=== PATIENT | male | born 1945 | race Caucasian/White ===

== ENCOUNTER → 2017-12-23 | Outpatient (CLI) | END | disposition home or self-care (01) ==

== ENCOUNTER 2018-09-02 13:40 | Inpatient (IN) | payer MEDICARE, OTHER ==
[~2018-09-02] VITALS: Ht 167.6 cm; Wt 134.8 kg
[~2018-09-02 13:40] MED LIST: ACET325 PO; ALBU2.5V5 NEB; ALBU3IS INH; ALBU90OI INH; ALLO100 PO; ALLOPURINOL; AMIO200 PO; AMOCLA500; ASPI325 PO; ASPI81CH PO; Amiodarone HCl200 MG PO; Amoxicillin500 MG PO; Aranesp60 MCG/11 INJ; BUME1; CALACE667G PO; CALC667 PO; CALCIUM ACETAT667 MG PO; CEPH500 PO; CINA30 PO; CLOP75 PO; COUMADIN; DOCU100 PO; ENOX100I SC; ENOX120I; FLUT.05NI; FLUT110OIA INH; Flonase 0.05% N16 GM; GABA100 PO; GABA300 PO; GLUC500 PO; HYDACE5 PO; LOPRESSOR; METO25 PO; METO25ER PO; MIDO2.5 PO; MIDO5 PO; Midodrine HCl10 MG PO; NEPHROCAPS QT1 EACH PO; OMEP20ER PO; ONDA4ODT SL; OXYC10ER PO; PANT40 PO; Percocet 5-3251 EACH PO; RENAGEL; RENAL CAP PO; RENVELA PO; RXPROM25 PO; Renal Caps Softg1 MG PO; SENSIPAR PO; SEVE800 PO; SEVEC800 PO; TAMS.4ER PO; VANCO 750750 MG/250; Ventolin/Prove6.7 GM INH; Ventolin5 MG/1 ML INH; WARF10; WARF10 PO; WARF6 PO; [UNRECOGNIZED DRUG - REMARK]; [UNRECOGNIZED DRUG - REMARK]
[2018-09-02 14:20] LABS: BASOPHILS ABSOLUTE AUTO 0.04 K/mm3 (0.00-0.23); BASOPHILS PERCENT AUTO 1 % (0-2); EOSINOPHILS ABSOLUTE AUTO 0.38 K/mm3 (0.00-0.68); EOSINOPHILS PERCENT AUTO 5 % (0-6); Hematocrit 39.8 % (37.0-53.0); Hemoglobin 12.4 g/dL (13.5-17.5); IMMATURE GRAN ABSOLUTE AUTO 0.06 K/mm3 (0.00-0.10); IMMATURE GRAN PERCENT AUTO 1 % (0-1); LYMPHOCYTES ABSOLUTE AUTO 2.34 K/mm3 (0.84-5.20); LYMPHOCYTES PERCENT AUTO 28 % (21-46); MONOCYTES ABSOLUTE AUTO 0.84 K/mm3 (0.16-1.47); MONOCYTES PERCENT AUTO 10 % (4-13); Mean Corpuscular HGB 31.9 pg (26.0-34.0); Mean Corpuscular HGB Conc 31.2 g/dL (31.5-36.5); Mean Corpuscular Volume 102 fL (80-100); Mean Platelet Volume 8.9 fL (9.1-12.4); NEUTROPHILS ABSOLUTE AUTO 4.82 K/mm3 (1.96-9.15); NEUTROPHILS PERCENT AUTO 57 % (41-73); Platelet Count 223 K/mm3 (150-400); RDW Coefficient Variation 15.4 % (11.7-14.2); RDW Standard Deviation 58.2 fL (35.1-46.3); Red Blood Cell Count 3.89 M/mm3 (4.30-5.90); White Blood Cell Count 8.48 K/mm3 (4.00-11.30)
[2018-09-02 14:36] LABS: Albumin, Blood 3.1 g/dL (3.4-5.0); Albumin/Globulin Ratio 0.6 (0.8-1.8); Bilirubin, Total 0.5 mg/dL (0.1-1.0); Bun/Creatinine Ratio 5.7 (12.0-20.0); Calcium, Blood 9.6 mg/dL (8.5-10.1); Creatinine, Blood 5.24 mg/dL (0.60-1.20); Globulin, Blood 4.9 g/dL (2.2-4.0); Potassium, Blood 4.4 mmol/L (3.5-5.5)
[2018-09-02] MEDS ORDERED: Augmentin 500-1 EACH PO (17:11)
[2018-09-02] MEDS ORDERED: MULVITB PO (17:12)
[2018-09-02 17:13] LABS: International Normalized Ratio 3.36; Prothrombin Time Results 31.9 Sec (9.7-11.5)
[2018-09-02] MEDS ORDERED: CLOP75 PO (17:16)
--- NOTE | 2018-09-02 17:45 | NUR ---
pt transferred to unit via his own power chair, pt a/0 x 4, pleasant/cooperative, vss
--- NOTE | 2018-09-03 00:30 | NUR ---
REPORT GIVEN TO Ac RICARDO RN AT THIS TIME.
[2018-09-03 04:47] LABS: BASOPHILS ABSOLUTE AUTO 0.04 K/mm3 (0.00-0.23); BASOPHILS PERCENT AUTO 1 % (0-2); EOSINOPHILS ABSOLUTE AUTO 0.37 K/mm3 (0.00-0.68); EOSINOPHILS PERCENT AUTO 6 % (0-6); Hematocrit 35.6 % (37.0-53.0); IMMATURE GRAN ABSOLUTE AUTO 0.03 K/mm3 (0.00-0.10); IMMATURE GRAN PERCENT AUTO 1 % (0-1); LYMPHOCYTES ABSOLUTE AUTO 1.76 K/mm3 (0.84-5.20); LYMPHOCYTES PERCENT AUTO 29 % (21-46); MONOCYTES ABSOLUTE AUTO 0.66 K/mm3 (0.16-1.47); MONOCYTES PERCENT AUTO 11 % (4-13); Mean Corpuscular HGB 30.8 pg (26.0-34.0); Mean Corpuscular HGB Conc 30.9 g/dL (31.5-36.5); Mean Corpuscular Volume 100 fL (80-100); Mean Platelet Volume 8.7 fL (9.1-12.4); NEUTROPHILS ABSOLUTE AUTO 3.25 K/mm3 (1.96-9.15); NEUTROPHILS PERCENT AUTO 53 % (41-73); Platelet Count 177 K/mm3 (150-400); RDW Coefficient Variation 15.2 % (11.7-14.2); RDW Standard Deviation 55.9 fL (35.1-46.3); Red Blood Cell Count 3.57 M/mm3 (4.30-5.90); White Blood Cell Count 6.11 K/mm3 (4.00-11.30)
[2018-09-03 05:05] LABS: Albumin, Blood 2.6 g/dL (3.4-5.0); Anion Gap 8 mmol/L (6-16); Blood Urea Nitrogen 39 mg/dL (8-24); Bun/Creatinine Ratio 6.4 (12.0-20.0); CO2, Blood 31 mmol/L (21-32); Chloride, Blood 99 mmol/L (98-108); Creatinine, Blood 6.05 mg/dL (0.60-1.20); Glomerular Filtration Rate 10 (60-); Glucose, Blood 87 mg/dL (70-99); Magnesium, Blood 2.2 mg/dL (1.6-2.4); Phosphorus, Blood 5.2 mg/dL (2.5-4.9); Potassium, Blood 4.7 mmol/L (3.5-5.5); Sodium, Blood 138 mmol/L (136-145)
[2018-09-03 05:06] LABS: International Normalized Ratio 3.87; Prothrombin Time Results 36.3 Sec (9.7-11.5)
--- NOTE | 2018-09-03 17:22 | NUR ---
[id number] late entry phone call made to dr quan as radiology is asking for further clarification of what type of venous study is being requested, dr quan requests venous and arterial doppler of left extremity. requested further clarification regarding venous study and no further details per dr quan
[2018-09-03 17:50] LABS: Vancomycin, Random 6.3 ug/mL
--- NOTE | 2018-09-03 18:32 | NUR ---
summary patient aware he is npo after midnight and is to be re evaluated by ortho in the morning. dr dumont in and applied xerofoam wrapped with gauze to left third finger and left second finger wrapped with gauze iv infusion amount estimated as found iv pump turned off and volumes cleared from machine
--- NOTE | 2018-09-04 04:38 | NUR ---
SUMMARY PT HAS SLEPT THROUGH THE NIGHT WITH NO PROBLEMS. BIPAP IN PLACE, PULSE OX IS ON. PT ENCOURAGED TO KEEP LEFT HAND ELEVATED ON PILLOWS. DRSG REMAINS C/D/I. PT CONTINUES TO HAVE N/T TO LEFT HAND, HE STATES THIS IS HIS BASELINE. DENIES PAIN. NS INFUSING PER EMAR. CALL LIGHT IN REACH, [facility]
[2018-09-04 05:36] LABS: BASOPHILS ABSOLUTE AUTO 0.04 K/mm3 (0.00-0.23); BASOPHILS PERCENT AUTO 1 % (0-2); EOSINOPHILS ABSOLUTE AUTO 0.37 K/mm3 (0.00-0.68); EOSINOPHILS PERCENT AUTO 5 % (0-6); Hematocrit 36.5 % (37.0-53.0); Hemoglobin 11.2 g/dL (13.5-17.5); IMMATURE GRAN ABSOLUTE AUTO 0.07 K/mm3 (0.00-0.10); IMMATURE GRAN PERCENT AUTO 1 % (0-1); LYMPHOCYTES ABSOLUTE AUTO 1.94 K/mm3 (0.84-5.20); LYMPHOCYTES PERCENT AUTO 25 % (21-46); MONOCYTES ABSOLUTE AUTO 0.87 K/mm3 (0.16-1.47); MONOCYTES PERCENT AUTO 11 % (4-13); Mean Corpuscular HGB Conc 30.7 g/dL (31.5-36.5); Mean Corpuscular Volume 101 fL (80-100); Mean Platelet Volume 8.8 fL (9.1-12.4); NEUTROPHILS ABSOLUTE AUTO 4.57 K/mm3 (1.96-9.15); NEUTROPHILS PERCENT AUTO 58 % (41-73); Platelet Count 206 K/mm3 (150-400); RDW Coefficient Variation 15.2 % (11.7-14.2); RDW Standard Deviation 56.8 fL (35.1-46.3); Red Blood Cell Count 3.61 M/mm3 (4.30-5.90); White Blood Cell Count 7.86 K/mm3 (4.00-11.30)
[2018-09-04 05:46] LABS: International Normalized Ratio 2.77; Prothrombin Time Results 26.8 Sec (9.7-11.5)
[2018-09-04 06:05] LABS: Albumin, Blood 2.7 g/dL (3.4-5.0); Anion Gap 9 mmol/L (6-16); Blood Urea Nitrogen 33 mg/dL (8-24); Bun/Creatinine Ratio 6.4 (12.0-20.0); CO2, Blood 29 mmol/L (21-32); Calcium, Blood 8.9 mg/dL (8.5-10.1); Chloride, Blood 101 mmol/L (98-108); Creatinine, Blood 5.19 mg/dL (0.60-1.20); Glomerular Filtration Rate 12 (60-); Glucose, Blood 89 mg/dL (70-99); Magnesium, Blood 2.2 mg/dL (1.6-2.4); Phosphorus, Blood 4.5 mg/dL (2.5-4.9); Sodium, Blood 139 mmol/L (136-145)
--- NOTE | 2018-09-04 18:55 | NUR ---
PT HAS DIFFICULTY GRASPING OBJECTS, NEEDS SOME ASSISTANCE OPENING THINGS FOR MEALS. UP AT SIDE OF BED FOR MOST MEALS. MEDICATED PER EMAR. NO C/O PAIN OR N/V. NO MAJOR CHANGES.
--- NOTE | 2018-09-04 19:06 | NUR ---
PT WAS PLANNED FOR POSSIBLE SURG THIS AM, MEDS HELD. DR STATED SURG NOT NEEDED AND MORNING MEDS WERE GIVEN AND DIET ADVANCED TO RENAL PER .
[2018-09-05 04:58] LABS: Hematocrit 35.1 % (37.0-53.0); Hemoglobin 10.9 g/dL (13.5-17.5)
[2018-09-05 05:12] LABS: International Normalized Ratio 1.89; Prothrombin Time Results 18.9 Sec (9.7-11.5)
[2018-09-05 05:17] LABS: Albumin, Blood 2.5 g/dL (3.4-5.0); Anion Gap 9 mmol/L (6-16); Blood Urea Nitrogen 53 mg/dL (8-24); CO2, Blood 29 mmol/L (21-32); Calcium, Blood 8.8 mg/dL (8.5-10.1); Chloride, Blood 99 mmol/L (98-108); Creatinine, Blood 6.66 mg/dL (0.60-1.20); Glomerular Filtration Rate 9 (60-); Glucose, Blood 91 mg/dL (70-99); Magnesium, Blood 2.2 mg/dL (1.6-2.4); Phosphorus, Blood 5.1 mg/dL (2.5-4.9); Potassium, Blood 5.7 mmol/L (3.5-5.5); Sodium, Blood 137 mmol/L (136-145)
--- NOTE | 2018-09-05 07:16 | NUR ---
SUMMARY PT MEDICATED X1 TONIGHT FOR PAIN WITH GOOD EFFECT. THIS AM WITH SHIFT CHANGE HAS C/O SORE THROAT. DAY RN AWARE.
--- NOTE | 2018-09-05 09:20 | NUR ---
PT TO DIALYSIS
--- NOTE | 2018-09-05 15:30 | NUR ---
therapy reported pt to weak to transfer to chair notified dr porter. dc cancelled for today.
--- NOTE | 2018-09-05 17:47 | NUR ---
SUMMARY NO ACUTE CHANGES T/O SHIFT. PT HAD DIALYSIS THIS SHIFT. HAS REQUIRED NO MEDICATION FOR PAIN. DR SPAIN IN TO CHANGE DRESSINGS TO L HAND. PT UNABLE TO CLEAR THERAPY TO BE DC'D. TOO WEAK TO TRANSFER TO CHAIR WHEN WORKING W/THERAPY. HAD LARGE SOFT BM. PLEASANT AND COOPERATIVE.
[2018-09-06 04:56] LABS: Hematocrit 33.4 % (37.0-53.0); Hemoglobin 10.3 g/dL (13.5-17.5)
[2018-09-06 05:05] LABS: International Normalized Ratio 1.74; Prothrombin Time Results 17.5 Sec (9.7-11.5)
[2018-09-06 05:16] LABS: Albumin, Blood 2.4 g/dL (3.4-5.0); Anion Gap 8 mmol/L (6-16); Blood Urea Nitrogen 43 mg/dL (8-24); Bun/Creatinine Ratio 7.3 (12.0-20.0); CO2, Blood 29 mmol/L (21-32); Calcium, Blood 8.7 mg/dL (8.5-10.1); Chloride, Blood 101 mmol/L (98-108); Creatinine, Blood 5.93 mg/dL (0.60-1.20); Glomerular Filtration Rate 10 (60-); Glucose, Blood 81 mg/dL (70-99); Magnesium, Blood 2.1 mg/dL (1.6-2.4); Phosphorus, Blood 4.6 mg/dL (2.5-4.9); Sodium, Blood 138 mmol/L (136-145)
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
--- NOTE | 2018-09-06 09:41 | NUR ---
THERAPY: OT IN ROOM TO SEE PATIENT. PT HAD COMPLETE BEDBATH AND USED THE BEDPAN WITH ASSIST. AM MEDS GIVEN.
--- NOTE | 2018-09-06 10:44 | NUR ---
PATIENT PERMISSION PATIENT GAVE THIS STUDENT NURSE PERMISSION TO PROVIDE CARE ON 09/07/18 FROM 0630 TO 1200.
[2018-09-06 15:54] LABS: Vancomycin, Random 20.6 ug/mL
--- NOTE | 2018-09-06 17:34 | NUR ---
DISCHARGE: DC TO [facility] AT THIS TIME. PT IV DC'D WNL. PT DRESSED IN OWN CLOTHING AND BELONGINGS SENT WITH HIM. FAMILY WILL BE IN TO [employer] PATIENT'S MOTOR WHEELCHAIR AND DELIVER BIPAP TO REHAB FACILITY. VANCO TO BE DOSED AND GIVEN AT DIALYSIS. DIALYSIS TRANSPORT SET UP FOR THE NEXT WEEK BY CARE MANAGEMENT. DRESSINGS CHANGED TO LEFT AND AND EXTRA DRESSING SUPPLIES SENT WITH PATIENT.
== END 2018-09-06 17:35 | DRG 871 ==
LOC: ER 13:40 → SURS 16:36
PROVIDERS: Internal Medicine Nephrology; Physician Assistant; ADMIT Family Medicine
PROC: 0JDK3ZZ Extraction of Left Hand Subcutaneous Tissue and Fascia, Percutaneous Approach (ICD-10-PCS; principal; 2018-09-04)
DX: A41.9 Sepsis, unspecified organism (principal); N18.6 End stage renal disease; T23.332A Burn of third degree of multiple left fingers (nail), not including thumb, initial encounter; I42.9 Cardiomyopathy, unspecified; I12.0 Hypertensive chronic kidney disease with stage 5 chronic kidney disease or end stage renal disease; L03.114 Cellulitis of left upper limb; E11.52 Type 2 diabetes mellitus with diabetic peripheral angiopathy with gangrene; I96 Gangrene, not elsewhere classified; Z68.41 Body mass index [BMI] 40.0-44.9, adult; Z99.2 Dependence on renal dialysis; M10.9 Gout, unspecified; E21.3 Hyperparathyroidism, unspecified; M89.5 Osteolysis; Z79.01 Long term (current) use of anticoagulants; G62.9 Polyneuropathy, unspecified; Z89.512 Acquired absence of left leg below knee; Z87.891 Personal history of nicotine dependence; Z95.810 Presence of automatic (implantable) cardiac defibrillator; I48.2 Chronic atrial fibrillation; G47.33 Obstructive sleep apnea (adult) (pediatric); E11.22 Type 2 diabetes mellitus with diabetic chronic kidney disease; E87.70 Fluid overload, unspecified; D63.1 Anemia in chronic kidney disease; Z86.14 Personal history of Methicillin resistant Staphylococcus aureus infection; X16.XXXA Contact with hot heating appliances, radiators and pipes, initial encounter; E66.01 Morbid (severe) obesity due to excess calories; E87.5 Hyperkalemia; R60.9 Edema, unspecified
CPT/HCPCS: 36415; 71045; 73130; 80053; 80069; 80202; 82947; 83605; 83735; 85014; 85018; 85025; 85610; 85730; 87040; 87070; 87075; 87205; 93931; 93971; 94660; 94762; 96361; 96365; 97110; 97162; 97166; 97530; 99285-25; J2185; J2543; J3010; J3370; J7030

== ENCOUNTER 2018-09-30 10:19 | Emergency (ER) | payer MEDICARE, OTHER ==
[~2018-09-30] VITALS: Ht 167.6 cm; Wt 136.1 kg
[~2018-09-30 10:19] MED LIST changes: +Augmentin 500-1 EACH PO; +MULVITB PO
[2018-09-30 10:53] LABS: BASOPHILS ABSOLUTE AUTO 0.03 K/mm3 (0.00-0.23); BASOPHILS PERCENT AUTO 0 % (0-2); EOSINOPHILS PERCENT AUTO 0 % (0-6); Hemoglobin 12.6 g/dL (13.5-17.5); IMMATURE GRAN ABSOLUTE AUTO 0.16 K/mm3 (0.00-0.10); IMMATURE GRAN PERCENT AUTO 1 % (0-1); LYMPHOCYTES PERCENT AUTO 7 % (21-46); MONOCYTES ABSOLUTE AUTO 1.41 K/mm3 (0.16-1.47); MONOCYTES PERCENT AUTO 7 % (4-13); Mean Corpuscular HGB 31.7 pg (26.0-34.0); Mean Corpuscular HGB Conc 30.7 g/dL (31.5-36.5); Mean Corpuscular Volume 103 fL (80-100); NEUTROPHILS ABSOLUTE AUTO 16.32 K/mm3 (1.96-9.15); NEUTROPHILS PERCENT AUTO 85 % (41-73); Platelet Count 263 K/mm3 (150-400); RDW Coefficient Variation 15.5 % (11.7-14.2); RDW Standard Deviation 58.3 fL (35.1-46.3); Red Blood Cell Count 3.98 M/mm3 (4.30-5.90); White Blood Cell Count 19.32 K/mm3 (4.00-11.30)
[2018-09-30 11:19] LABS: PCO2 Arterial 50.5 mmHg (35-45); PO2 Arterial 55.6 mmHg (80-100); pH Blood Arterial 7.38 (7.35-7.45)
[2018-09-30 11:43] LABS: Source, Urine Catheter
[2018-09-30 11:58] LABS: International Normalized Ratio 1.85; Prothrombin Time Results 18.5 Sec (9.7-11.5)
[2018-09-30 12:05] LABS: Bilirubin, Urine Neg (Neg); Blood, Urine 4+ (Neg); Glucose Qualitative, Urine Neg (Neg); Ketones, Urine 1+ (Neg); Leukocyte Esterase, Urine 2+ (Neg); Nitrite, Urine Neg (Neg); Protein, Urine 4+ (Neg); Specific Gravity, Urine 1.015 (1.003-1.022); Urobilinogen, Urine NORM (Normal)
[2018-09-30 12:15] LABS: Alanine Aminotransfer (ALT/SGP 63 U/L (12-78); Albumin/Globulin Ratio 0.6 (0.8-1.8); Alk Phos 88 U/L (50-136); Anion Gap 14 mmol/L (6-16); Aspartate Aminotrans (AST/SGOT 86 U/L (12-37); Bilirubin, Total 1.3 mg/dL (0.1-1.0); Blood Urea Nitrogen 46 mg/dL (8-24); CO2, Blood 29 mmol/L (21-32); Calcium, Blood 10.4 mg/dL (8.5-10.1); Chloride, Blood 100 mmol/L (98-108); Ethanol (Alcohol), Blood, Med <3 mg/dL; Globulin, Blood 4.8 g/dL (2.2-4.0); Glomerular Filtration Rate 12 (60-); Glucose, Blood 102 mg/dL (70-99); Potassium, Blood 5.6 mmol/L (3.5-5.5); Sodium, Blood 143 mmol/L (136-145); Total Protein, Blood 7.8 g/dL (6.4-8.2)
[2018-09-30 12:25] LABS: U Amphetamine Screen Not Detected; U Barbituate Screen Not Detected; U Benzodiazapine Screen Not Detected; U Buprenorphine Screen Not Detected; U Cannabinoids Screen Not Detected; U Cocaine Screen Not Detected; U Methadone Screen Not Detected; U Methamphetamine Screen Not Detected; U Opiates Screen Not Detected; U Oxycodone Screen Not Detected; U Phencyclidine Screen Not Detected; U Propoxyphene Screen Not Detected
[2018-09-30 12:31] LABS: Appearance, Urine Cloudy (Clear); Color, Urine Yellow (P-Yellow)
[2018-09-30 12:34] LABS: Bacteria Mod /hpf; Squamous Epithelial Cells Rare /hpf (Few)
== END 2018-09-30 12:54 ==
LOC: ER 10:19
PROVIDERS: Emergency Medicine
DX: I46.9 Cardiac arrest, cause unspecified (principal); J18.1 Lobar pneumonia, unspecified organism; N39.0 Urinary tract infection, site not specified; R41.82 Altered mental status, unspecified; I13.0 Hypertensive heart and chronic kidney disease with heart failure and stage 1 through stage 4 chronic kidney disease, or unspecified chronic kidney disease; N18.6 End stage renal disease; D63.1 Anemia in chronic kidney disease; I48.91 Unspecified atrial fibrillation; Z88.1 Allergy status to other antibiotic agents; Z79.899 Other long term (current) drug therapy; Z79.01 Long term (current) use of anticoagulants; Z79.02 Long term (current) use of antithrombotics/antiplatelets
CPT/HCPCS: 36600; 51701; 70450; 71045; 80053; 81001; 82803; 82947; 85025; 85610; 87077; 87086; 87186; 93005; 93010; 99285-25; G0480